=== PATIENT | male | born 1955 | race Caucasian/White ===

== ENCOUNTER → 2018-05-24 15:22 | Outpatient (CLI) | payer MEDICARE | END | disposition home or self-care (01) | LOC: D.RAD 15:22 | DX: R06.02 Shortness of breath (principal) ==

== ENCOUNTER 2018-06-22 09:34 | Day surgery (SDC) | payer MEDICARE ==
[~2018-06-22] VITALS: Ht 167.6 cm; Wt 61.2 kg
[2018-06-22 10:18] LABS: BASOPHILS 0.8 % (0-2); EOSINOPHILS 8.5 % (0-7); HEMATOCRIT 38.6 % (42.0-54.0); HEMOGLOBIN 12.3 g/dL (13.5-17.5); IMMATURE GRANULOCYTES 0.2 % (0-5); LYMPHOCYTES 15.2 % (15-50); MCHC 31.9 g/dL (31.0-37.0); MCV 87.7 fL (80.0-100.0); MEAN PLATELET VOLUME 8.6 fL (7.4-10.4); MONOCYTES 6.1 % (2-11); NEUTROPHILS 69.2 % (40-80); PLATELET COUNT 141 10x3/uL (130-400); RDW 15.6 % (11.5-14.5); WBC 8.6 10x3/uL (4.8-10.8)
[2018-06-22 10:22] LABS: INR 1.04 (0.85-1.17); PROTIME 13.1 SECONDS (11.6-15.0)
[2018-06-22 10:42] LABS: CALCIUM 8.8 mg/dL (8.5-10.1); CARBON DIOXIDE 24.9 mmol/L (21.0-32.0); CREATININE - SERUM 5.4 mg/dL (0.6-1.3); POTASSIUM - SERUM 4.9 mmol/L (3.5-5.1)
[2018-06-22] MEDS ORDERED: LASIX80 MG PO (11:41)
[2018-06-22] MEDS ORDERED: NORVASC5 MG (11:41)
[2018-06-22] MEDS ORDERED: LISINOPRIL2.5 MG (11:41)
[2018-06-22] MEDS ORDERED: LIPITOR40 MG PO (11:42)
[2018-06-22] MEDS ORDERED: CLOTRIMAZOLE-BETAMET (11:43)
[2018-06-22 11:54] VITALS: Ht 167.6 cm; Wt 61.2 kg
[2018-06-22] MEDS ORDERED: HYDROCODON-ACE1 EAC7 PO (14:56)
--- NOTE | 2018-06-24 11:50 | OP ---
PATIENT NAME: EULOGIO MULLER MEDICAL RECORD: [id number] :51 LOCATION:D[facility] ADMISSION DATE: SURGEON: GERSON AHUMADA MD DATE OF OPERATION: 06/22/2018 REFERRING PHYSICIAN: Marquis Soto MD PREOPERATIVE DIAGNOSES: End-stage renal disease. POSTOPERATIVE DIAGNOSIS: End-stage renal disease. OPERATION PERFORMED: Creation of a left wrist radiocephalic arterial venous fistula. SURGEON: Gerson Ahumada MD ANESTHESIA: Regional block and MAC per LOGISTICS SUPPORT. PREOPERATIVE NOTE: Ms. Muller is on dialysis and requires long-term access. She is brought to the operating room as an outpatient to create a fistula in the left upper extremity. Under regional block and additional sedation as needed, the patient was placed in the supine position, prepped and draped in the sterile manner. A Augusto drain was used as a proximal venous tourniquet and nitroglycerin paste was applied to the skin of the arm and forearm. The patient's superficial veins stood up very prominently and although I did do ultrasound, it was really not necessary, the cephalic vein at the wrist all the way up to the shoulder was a good caliber about 3-4 mm in diameter at the wrist and I elected to go ahead with the radiocephalic fistula as planned preop. A longitudinal incision was made through which the cephalic vein and the radial artery were exposed. Branches and tributaries controlled with electrocautery or tiny Hemoclips. The vein and artery were approximated side to side and occluded with when needed with Silastic loops. The vein was opened and flushed with heparinized saline and hydrostatically distended. The artery was then opened making a corresponding arteriotomy, which then also was flushed proximally and distally with heparinized saline. A eubv-xw-xite anastomosis was then performed with continuous running 7-0 Prolene and when completed and the occluding loops were released, excellent flow immediately developed. The vein distal to the anastomosis was closed with Hemoclips leaving an effective end of vein to side of artery fistula. Hemostasis was obtained with electrocautery. The wound was irrigated with Ancef/gentamicin solution and closed without the use of a drain with interrupted inverted 3-0 Vicryl. First continuous wave handheld Doppler exam was done, which demonstrated pulsatile continuous flow in the new fistula and preservation of flow in the distal radial artery as well as in the proximal. The skin was closed with running intracuticular 4-0 Monocryl and Dermabond glue. It was dressed with Maxorb Ag, Tegaderm, and Cavilon skin prep. The patient was awakened and taken back to the recovery room. PLAN: I plan for the patient to go home today and resume activities and her usual dialysis schedule tomorrow. She will continue her same home medications and I will ask her to come back to see me in my office for followup next week. She can leave the original operative dressing intact until then. OPERATIVE REPORT [id number] EULOGIO MULLER TRANSINT:[id number] Voice Confirmation ID: [id number] DOCUMENT ID: [id number] 06/23/2018 [facility] [phone] GERSON AHUMADA MD at 1150 CC: [facility] and MARQUIS SOTO MD [phone] DICTATION DATE: 06/22/182021 TENTER FRAME BACK TENDER: 06/23/18 0143 [facility] 06/22/18 [facility] [address] [place] [address]
== END 2018-06-22 17:30 | disposition home or self-care (01) ==
LOC: D.OPS 09:34
PROVIDERS: Surgery; ATTEND Internal Medicine Nephrology
DX: N18.6 End stage renal disease (principal); Z01.812 Encounter for preprocedural laboratory examination; Z99.2 Dependence on renal dialysis

== ENCOUNTER 2018-07-20 08:53 | Outpatient (CLI) | payer MEDICARE ==
[~2018-07-20] VITALS: Ht 167.6 cm; Wt 65.9 kg
--- NOTE | ~2018-07-20 | HEMODYNAMI ---
PATIENT:EULOGIO ANDERSEN MEDICAL RECORD: [id number] : 51 LOCATION:[facility] ADMISSION DATE: 07/20/18 Generatedon:07/20/201811:08 Patient name: EULOGIO ANDERSEN Patient #: [id number] SSN: DO B: 1955 Date of study: 07/20/2018 Page: Of Hemodynamic Procedure Report Patient Data Patient Demographics Procedure consent was obtained First Name: EULOGIO Gender: Male Last Name: NATHALY : 1955 Middle Initial: L Age: 63 year(s) Patient #: [id number] Race: Unknown Additional ID: [id number] Contact details [address]: [address] [place] [address] State: [place] City: [place] Zip code: [address] Past Medical History Allergies: No known allergies Admission Admission Data Admission Date: 07/20/2018 Admission Time: 8:53 Height (in.): 67 BSA: 1.74 (m2) Height (cm.): 170.18 BMI: 22.08 (kg/m2) Weight (lbs.): 141 Weight (kg.): 63.96 Lab Results Lab Result Date: 07/20/2018 Lab Result Time: 0:00 Biochemistry Name Units Result Min Max BUN mg/dl 36 --(----)-* 7 18 Creatinine mg/dl 5.4 --(----)-* 0.6 1.3 Procedure Procedure Types Cath Procedure Diagnostic Procedure C [facility] w/Coronaries Sedation Charges Moderate Sedation up to 30 minutes PCI Procedure Coronary Stent Coronary Stent Initial Peripheral Cath Diagnostic Procedure Station Mechanic Apprentice Peripheral Procedures Lsybx-Jdeexib-Dwt-Off SONOSCOPE OPERATOR/STENT Peripheral Peripheral vascular Intervention Angioplasty Angioplasty Iliac Initial Angioplasty Iliac Additional Stent Stent Iliac w/plasty Initial Stent w/plasty-Iliac Additional Procedure Description Procedure Date Procedure Date: 07/20/2018 Procedure Start Time: 10:25 Procedure End Time: 11:07 Procedure Staff Name Function Nathen Acosta MD Performing Physician Ilene Nieto RT Monitor Mario Roth RN Nurse Miryam Briscoe RT Scrub Procedure Data Cath Procedure Fluoroscopy Diagnostic fluoroscopy Total fluoroscopy Time: 9.8 time: 9.8 min min Diagnostic fluoroscopy Total fluoroscopy dose: dose: 1244 mGy 1244 mGy Contrast Material Contrast Material Type Amount (ml) Isovue 300 225 Entry Location Entry Primary Successful Side Size (Fr) Upsize 1 Upsize Entry Closu re Successful Closure Location (Fr) 2 (Fr) Remarks Devic e Remarks Femoral Right 5 Fr 6 Fr 6 Fr Exose al artery Mid-Length Short Femoral Left 6 Fr 6 Fr Short Exose al artery Mid-Length Estimated blood loss: 10 ml Diagnostic catheters Device Type Used For End Catheter Placement MULTIPACK Pigtail 5 Fr Procedure catheter MULTIPACK Pigtail 5 Fr Abdominal catheter aortogram with runoff MULTIPACK JL 4.0 5Fr Procedure catheter Procedure Complications No complications Procedure Medications Medication Administration Route Dosage 0.9% NaCl I.V. 10 ml/hr Oxygen etCO2 Nasal cannula 2 l/min Heparin Flush Bag added to field 2 bags (1000units/500ml NS) Lidocaine 2% added to field 20 Versed I.V. 1 mg Fentanyl I.V. 50 mcg Heparin Bolus I.V. 4000 units Versed I.V. 0.5 mg Fentanyl I.V. 25 mcg Hemodynamics Rest BSA: 1.74 (m2) O2 Consumption: Estimated: 195.3 (ml/min) O2 Consumption indexed: Estimated:112.24 (ml/min/m) Heart Rate: 58 (bpm) Pressure Samples Time Site Value (mmHg) Purpose Heart Use Rate(bpm) 10:27 LV 107/2,14 Snapshot 60 10:28 AO 120/51(78) Pullback 67 10:28 LV 127/6,15 Pullback 67 Gradients Valve Time Site 1 Site 2 Mean SEP/DFP Peak To Heart Use (mmHg) (sec/min) Peak Rate (mmHg) (bpm) Aortic 10:28 LV AO 29 21 7 67 127/6,15 120/51(78) Calculations Valve P-P Mean Valve Index Valve Source Name Gradient Area Flow (cm2) Aortic 7 29 7 29 Snapshots Pre Cath Intra NCS Post Cath Vital Signs Time Heart Resp SPO2 etCO2 NIBP (mmHg) Rhythm Pain Sedation Rate (ipm) (%) (mmHg) Status Level (bpm) 10:15:23 59 18 100 26.6 137/67(104) NSR 0 (11) 10(A) , No pain 10:19:37 63 15 98 25 129/65(95) NSR 0 (11) 10(A) , No pain 10:23:51 59 15 100 0 117/57(88) NSR 0 (11) 10(A) , No pain 10:28:58 57 19 99 22.8 129/56(103) NSR 0 (11) 10(A) , No pain 10:33:12 60 20 99 17.4 116/62(92) NSR 0 (11) 9(A) , No pain 10:37:20 57 18 96 31.8 129/60(105) NSR 0 (11) 9(A) , No pain 10:41:32 60 14 99 0 128/61(94) NSR 0 (11) 9(A) , No pain 10:45:46 61 14 95 0.7 124/54(88) NSR 0 (11) 9(A) , No pain 10:49:58 59 21 95 23.5 115/58(93) NSR 0 (11) 9(A) , No pain 10:55:11 57 17 96 31.8 126/57(97) NSR 0 (11) 9(A) , No pain 10:59:23 57 17 100 25 128/61(99) NSR 0 (11) 9(A) , No pain 11:03:33 57 38 100 28.8 130/64(101) NSR 0 (11) 9(A) , No pain 11:07:45 61 16 99 0 129/68(94) NSR 0 (11) 9(A) , No pain Medications Time Medication Route Dose Verified Delivered Reason Notes Effectiveness by by 10:14:44 0.9% NaCl I.V. 10 Mario Mario Per physician ml/hr Ira Roth RN RN 10:14:53 Oxygen etCO2 2 Mario Mario for low 02 sats Nasal l/min Ira Roth cannula RN RN 10:15:05 Heparin Flush added 2 Mario Mario used for Bag to bags Ira Roth procedure (1000units/500ml field RN RN NS) 10:15:15 Lidocaine 2% added 20ml Mario Mario for local to vial Ira Roth anesthetic field DUMONT RN 10:24:15 Versed I.V. 1 mg Mario Mario for sedation Ira Roth RN RN 10:24:23 Fentanyl I.V. 50 Mario Mario for sedation mcg Ira Roth RN RN 10:38:28 Heparin Bolus I.V. 4000 Mario Mario for units Lorromeo Roth anticoagulation RN RN 10:39:25 Versed I.V. 0.5 Mario Mario for sedation mg Ira Roth RN RN 10:39:32 Fentanyl I.V. 25 Mario Mario for sedation mcg Ira Roth RN deliverer outside Log Time Note 9:56:03 Time tracking: Regular hours (M-F 7:00 - 5:00) 9:56:07 Plan of Care:Hemodynamics will remain stable., Cardiac rhythm will remain stable., Comfort level will be maintained., Respiratory function will remain adequate., Patient/ family verbilizes understanding of procedure., Procedure tolerated without complication., Recovers from procedure without complications.. 9:56:11 Mario Roth RN sent for patient. Start room use. 10:04:59 Patient received from Pre/Post Procedure Room to CCL 2 Alert and oriented. Tansferred to table in Supine position. 10:05:00 Warm blankets applied, and marek hugger turned on for patient comfort. 10:05:01 Correct patient and procedure confirmed by team. 10:05:02 Signed procedure consent form obtained from patient. 10:05:04 ECG and BP/O2 sat monitors applied to patient. 10:05:27 H&P Date Dictated: 07/08/2018 Within 30 days and on chart., H&P Addendum completed by physician on day of procedure. (MUST COMPLETE FOR ALL OUTPATIENTS). 10:05:29 Pre-procedure instructions explained to patient. 10:05:30 Family in waiting room. 10:05:34 Patient NPO since Midnight. 10:05:46 Patient allergic to No known allergies 10:05:50 Is the patient allergic to Iodine/contrast media? No. 10:05:51 Was the patient premedicated? Yes 10:06:06 Is patient on blood thinner?Yes 10:06:10 ACC The patient was administered the following blood thiners within the last 24 hours: ACCPlavix 10:06:12 Patient diabetic? No. 10:06:16 Snore? Yes 10:06:17 Sleep apnea? No 10:06:27 Dentures? No ? 10:06:39 IV patent on arrival in right forearm with 0.9% NaCl at [facility]. 10:08:18 Lab Result : Creatinine 5.4 mg/dl 10::18 Lab Result : BUN 36 mg/dl 10:08:40 Patient Height : 67 inches 10:08:49 Patient Weight : 141 lbs 10:09:05 Lab results completed and on chart. 10:09:11 Bilateral groins area was prepped with chlora-prep and draped in sterile fashion 10::13 Sharps counted by scrub and verified by R.N. 10::34 Vital chart was started 10:14:44 0.9% NaCl 10 ml/hr I.V. was administered by Mario Roth RN; Per physician; 10:14:53 Oxygen 2 l/min etCO2 Nasal cannula was administered by Mario Roth RN; for low 02 sats; 10:15:05 Heparin Flush Bag (1000units/500ml NS) 2 bags added to field was administered by Mario Roth RN; used for procedure; 10:15:15 Lidocaine 2% 20ml vial added to field was administered by Mario Roth RN; for local anesthetic; 10:17:30 Baseline sample Acquired. 10::34 Rhythm: sinus rhythm 10:17:37 Full Disclosure recording started 10:17:57 Pre procedure: right dorsailis pedis pulse Doppler 10:18:02 Pre procedure: left dorsailis pedis pulse Doppler 10:19:51 Maximum allowable Isovue 300 dose 56ml. Physician notified. (300ml for normal creatinines. For patients with creatinine of 1.7 or higher multiply weight(kg) x 5 divided by creatinine.) 10:22:24 Physician arrived 10:22:25 --------ALL STOP TIME OUT------ 10:22:26 Final Timeout: patient, procedure, and site verified with staff and physician. All members of the team are in agreement. 10:22:31 Bilateral groins site verified by team. 10:23:59 Fire Safety Assessment: A--An alcohol-based skin anteseptic being used preoperatively., C--Open oxygen or nitrous oxide is being used., D--An ESU, laser, or fiber-optic light is being used. 10:24:03 Physical assessment completed. ASA score P 2 - A patient with mild systemic disease as per Nathen Acosta MD. 10:24:07 Sedation plan: IV Moderate Sedation Medication:Versed, Fentanyl 10:24:15 Versed 1 mg I.V. was administered by Mario Roth RN; for sedation; 10:24:23 Fentanyl 50 mcg I.V. was administered by Mario Roth RN; for sedation; 10:24:38 Use device set Femoral Dx 10:24:40 ACIST Syringe (07432) opened to sterile field. 10:24:40 Bag Decanter (2002S) opened to sterile field. 10:24:41 Medline Cath Pack ([id number]) opened to sterile field. 10:24:42 DIAGNOSTIC WIRE .035 260cm J wire (572231) opened to sterile field. 10:24:43 ACIST Hand Control (00856) opened to sterile field. 10:24:43 ACIST Manifold (48582) opened to sterile field. 10:24:45 DIAGNOSTIC Multipack 5Fr catheter set (QY8620) opened to sterile field. 10:24:48 SHEATH 5FR Wharton (OAK136) opened to sterile field. 10:24:52 Procedure started. 10:25:13 Local anesthetic to right femoral artery with Lidocaine 2% by Nathen Acosta MD.INITIAL ACCESS ONLY 10:25:23 A 5 Fr sheath was inserted into the Right Femoral artery 10:26:23 GLIDE WIRE ANGLE 260cm (HO3892) opened to sterile field. 10:26:29 glidewire wire advanced. 10:27:01 A MULTIPACK Pigtail 5 Fr catheter was advanced over the wire and used for Procedure. 10:27:06 LV angiography performed. 10:28:08 LV gram done using ROMERO 10:28:13 EF : 30 % 10:28:16 Catheter removed. 10:29:25 A MULTIPACK Pigtail 5 Fr catheter was advanced over the wire and used for Abdominal aortogram with runoff. 10:29:44 Abdominal Aortagram was performed. 10:29:46 Right leg runoff performed. 10:29:47 Left leg runoff performed. 10:30:46 Catheter removed. 10:30:56 A MULTIPACK JL 4.0 5Fr catheter was advanced over the wire and used for Procedure. 10:31:45 LCA angiography performed. 10:33:55 Catheter removed. 10:36:57 Proceeding to intervention. 10:37:16 SHEATH 6FR Brite Tip 35cm ([id number]) opened to sterile field. 10:37:29 Sheath upsized to a 6 Fr Mid-Length. 10:38:28 Heparin Bolus 4000 units I.V. was administered by Mario Roth RN; for anticoagulation; 10:39:25 Versed 0.5 mg I.V. was administered by Mario Roth RN; for sedation; 10:39:32 Fentanyl 25 mcg I.V. was administered by Mario Roth RN; for sedation; 10:40:22 Place stent Inflation Number: 1 A LETHA 7 x 18 x 135 stent ([id number]) was prepped and advanced across the Mid Common Iliac, Right. The stent was deployed at 13 LINCOLN for 0:10 (min:sec). 10:41:42 Inflation number: 2 The stent balloon was then re-inflated across the Mid Common Iliac, Right to 15 LINCOLN for 0:09 (min:sec). 10:43:53 6 Fr [id number] guide catheter was inserted over the wire 10:43:59 CHOICE PT Extra Support 182cm wire ([id number]) opened to sterile field. 10:44:05 INFLATOR Merit BasixCompak (KQ1629) opened to sterile field. 10:45:15 Wire advanced across lesion. 10:47:10 Place stent Inflation Number: 1 A INTEGRITY RX 2.25 x 12 stent ([id number]) was prepped and advanced across the Mid CX. The stent was deployed at 13 LINCOLN for 0:16 (min:sec). 10:48:34 Wire removed. 10:48:37 Stent catheter was removed intact over wire. 10:48:38 Guide catheter removed. 10:48:54 Local anesthetic to left femerol artery with Lidocaine 2% by Nathen Acosta MD.ADDITIONAL ACCESS 10:49:41 A 6 Fr Mid-Length sheath was inserted into the Left Femoral artery 10:52:23 choice pt ex support wire advanced. 10:53:04 Inflation number: 1 The stent balloon was then re-inflated across the Mid Common Iliac, Left to 9 LINCOLN for 0:10 (min:sec). 10:53:13 Balloon removed. 10:54:50 Place stent Inflation Number: 2 A LETHA 7 x 29 x 135 stent ([id number]) was prepped and advanced across the Mid Common Iliac, Left. The stent was deployed at 15 LINCOLN for 0:10 (min:sec). 10:58:06 Stent removed. 10:58:09 Stent catheter was removed intact over wire. 10:58:50 Sheath removed intact; hemostasis achieved with Exoseal to the Left Femoral artery. 10:58:50 Sheath upsized to a 6 Fr Short. 10:59:09 Sheath upsized to a 6 Fr Short. 10:59:09 Sheath removed intact; hemostasis achieved with Exoseal to the Right Femoral artery. 10:59:36 SHEATH 6FR Wharton (JHZ448) opened to sterile field. 10:59:38 CHOICE PT Extra Support 182cm wire ([id number]) opened to sterile field. 10:59:39 SHEATH 6FR Brite Tip 35cm ([id number]) opened to sterile field. 10:59:43 SHEATH 6FR Wharton (ICS706) opened to sterile field. 10:59:47 Tegaderm 4 x 4 (1626W) opened to sterile field. 10:59:52 EXOSEAL 6Fr (EX600) opened to sterile field. 10:59:53 EXOSEAL 6Fr (EX600) opened to sterile field. 10:59:58 Procedure ended.(Physican Out) 11:00:09 Fluoroscopy time 09.80 minutes. 11:00:14 Fluoroscopy dose: 1244 mGy 11:00:14 Flurop Dose total: 1244 11:01:50 Contrast amount:Isovue 300 225ml. 11:02:34 Sharps counted by scrub and verified by R.N. 11:02:38 Insertion/operative site no bleeding no hematoma. 11:02:42 Post-op/insertion site Right Femoral artery dressed using a 4 x 4 and Tegaderm. 11:02:46 Post-op/insertion site Left Femoral artery dressed using a 4 x 4 and Tegaderm. 11:02:52 Post right femoral artery:stable 11:02:56 Post left femerol artery:stable 11:02:58 Post Procedure Pulses reassessed and unchanged 11:03:02 Post-procedure physical assessment completed. ASA score P 2 - A patient with mild systemic disease as per Nathen Acosta MD. 11:03:10 Post procedure rhythm: unchanged. 11:03:14 Estimated blood loss: 10 ml 11:03:16 Post procedure instruction explained to patient.Patient verbalizes understanding. 11:04:47 Procedure type changed to Cath procedure, Diagnostic procedure, LHC, LHC w/Coronaries, Sedation Charges, Moderate Sedation up to 30 minutes, PCI procedure, Coronary Stent, Coronary Stent Initial, Peripheral Cath Diagnostic Procedure, Station Mechanic Apprentice Peripheral Procedures, Xwvux-Kdmbozp-Mlr-Off, SONOSCOPE OPERATOR/STENT Peripheral, Peripheral vascular Intervention, Angioplasty, Angioplasty Iliac Initial, Angioplasty Iliac Additional, Stent, Stent Iliac w/plasty Initial, Stent w/plasty-Iliac Additional 11:04:50 Procedure and supply charges have been captured, reviewed, submitted and are correct. 11:06:29 Procedure and supply charges have been captured, reviewed, submitted and are correct. 11:07:24 Procedure Complication : No complications 11:07:27 Vital chart was stopped 11:07:27 See physician's report for complete and final results. 11:07:31 Report given to Pre/Post Procedure Room. 11:07:35 Patient transfered to Pre/Post Procedure Room with Stretcher. 11:07:37 Procedure ended. 11:07:37 Full Disclosure recording stopped 11:07:41 End room use (Document Last) Intervention Summary Intervention Notes Time ActionType Lesion and Equipment Action# Pressure Duration Attributes Used 10:40:22 Place stent Mid Common LETHA 7 x 1 13 00:10 Iliac, 18 x 135 Right stent ([id number]) 10:41:42 Reinflate Mid Common LETHA 7 x 2 15 00:09 stent Iliac, 18 x 135 balloon Right stent ([id number]) 10:47:10 Place stent Mid CX INTEGRITY RX 1 13 00:16 2.25 x 12 stent ([id number]) 10:53:04 Reinflate Mid Common LETHA 7 x 1 9 00:10 stent Iliac, Left 18 x 135 balloon stent ([id number]) 10:54:50 Place stent Mid Common LETHA 7 x 2 15 00:10 Iliac, Left 29 x 135 stent ([id number]) Device Usage Item Name Manufacture Quantity Catalog Number Hospital Part Current Mini [facility] Lot# / Charge Number Stock Stock Serial# Code [facility] 1 [id number] 178341 734312 016592 20 Syringe Medical (38764) Systems Inc Bag Decanter Microtek 1 2001S 705809 33062 290558 5 () Medical Inc. Medline Cath Medline 1 [id number] 741204 19249 475930 5 Pack ([id number]) DIAGNOSTIC [facility] 1 289527 879088 850676 816920 30 WIRE .035 260cm J wire (521721) ACIST Hand Acist 1 04017 938734 752209 222396 5 Control Medical (20908) Systems Inc ACIST Acist 1 38840 077528 029874 456379 5 Manifold Medical (47282) Systems Inc DIAGNOSTIC Cardinal 1 [id number] 707467 27470 040185 30 Multipack Health 5Fr catheter set (RV3053) SHEATH 5FR Terumo 1 [id number] 622036 363554 093592 5 Wharton (TAQ378) GLIDE WIRE Terumo 1 JI4986 197220 854209 102664 5 ANGLE 260cm (ZR9812) MULTIPACK Cardinal 2 156286 5 Pigtail 5 Fr Health catheter MULTIPACK JL Cardinal 1 677348 5 4.0 5Fr Health catheter LETHA 7 x Cardinal 1 [id number] 055054 969198 041165 5 [id number] 18 x 135 Health stent ([id number]) CHOICE PT [place] 2 [id number] 164082 481230 926859 5 Extra Scientific Support 182cm wire ([id number]) SHEATH 6FR Cardinal 2 [id number] 302757 589921 357998 1 Impact Radiuse [facility] 35cm ([id number]) INFLATOR [facility] 1 [id number] 464023 240540 060225 15 [facility] Medical BasixCompak (BV5623) INTEGRITY RX Medtronic 1 [id number] 246052 231409 418164 5 [id number] 2.25 x 12 stent ([id number]) LETHA 7 x Cardinal 1 [id number] 402679 42464 122712 5 [id number] 29 x 135 Health stent ([id number]) SHEATH 6FR Terumo 2 [id number] 849005 218567 035835 40 Wharton (REE673) Tegaderm 4 x 3M 1 1626W 497944 272679 424864 5 4 (1626W) EXOSEAL 6Fr Cardinal 2 EX600 307375 195001 718381 10 (EX600) Health Signature Audit [place] Stage Time Signature Unsigned Intra-Procedure 07/20/2018 Ilene Nieto 11:08:14 AM RT(R) Signatures Monitor : Ilene Nieto Signature : RT Date : Time : [place] [place] [address]
[~2018-07-20 08:53] MED LIST: CLOTRIMAZOLE-BETAMET; HYDROCODON-ACE1 EAC7 PO; LASIX80 MG PO; LIPITOR40 MG PO; LISINOPRIL2.5 MG; NORVASC5 MG
[2018-07-20] MEDS ORDERED: PLAVIX75 MG PO (09:09)
[2018-07-20] MEDS ORDERED: DOXYCYCLINE HY100 M2 PO (09:10)
[2018-07-20] MEDS ORDERED: BREO ELLIPTA 11 EACH INH (09:10)
[2018-07-20] MEDS ORDERED: ASMANEX0.24 GM INH (09:11)
[2018-07-20] MEDS ORDERED: GABAPENTIN100 MG PO (09:11)
[2018-07-20] MEDS ORDERED: ISOSORBIDE MONO60 M1 PO (09:11)
[2018-07-20] MEDS ORDERED: NITROQUICK0.4 MG SL (09:12)
[2018-07-20] MEDS ORDERED: ULTRAM50 MG PO (09:12)
[2018-07-20 09:24] VITALS: BP 125/54; Ht 167.6 cm; Wt 65.9 kg
[2018-07-20] MEDS ORDERED: COREG6.25 MG PO (09:33)
[2018-07-20 09:44] LABS: BASOPHILS 0.6 % (0-2); EOSINOPHILS 9.6 % (0-7); HEMATOCRIT 40.9 % (42.0-54.0); HEMOGLOBIN 13.1 g/dL (13.5-17.5); IMMATURE GRANULOCYTES 0.1 % (0-5); LYMPHOCYTES 14.5 % (15-50); MCH 28.2 pg (26.0-34.0); MEAN PLATELET VOLUME 8.7 fL (7.4-10.4); MONOCYTES 7.3 % (2-11); NEUTROPHILS 67.9 % (40-80); RBC 4.65 10x6/uL (4.20-6.10); RDW 15.3 % (11.5-14.5); WBC 8.3 10x3/uL (4.8-10.8)
[2018-07-20 09:47] LABS: ANION GAP 14.7 mmol/L (8-16); CALCIUM 9.5 mg/dL (8.5-10.1); CARBON DIOXIDE 28.5 mmol/L (21.0-32.0); CREATININE - SERUM 5.4 mg/dL (0.6-1.3); POTASSIUM - SERUM 4.2 mmol/L (3.5-5.1)
[2018-07-20 10:06] LABS: PLATELET COUNT 189 10x3/uL (130-400)
--- NOTE | 2018-07-20 11:15 | NUR ---
RECIEVED TO ROOM VIA STRETCHER FROM [employer] AGENT WITH BILATERAL 6 FR EXOSEALS CDI HR 59 BP 121/53. CHEST PAIN IS DENIED.
--- NOTE | 2018-07-20 11:35 | NUR ---
RESTING QUIETLY WITH NO DISTRESS NOTED. BILATERAL GROINS ARE CDI
--- NOTE | 2018-07-20 11:43 | NUR ---
NO DISTRESS NOTED VSS AND CHEST PAIN IS DENIED
--- NOTE | 2018-07-20 12:09 | NUR ---
BILATERAL 6 FR EXOSEALS ARE CDI WITH PATIENT VERBALIZING NO PAIN OR NEEDS. TOLERATING ICE CHIPS WITH NAUSEA DENIED
--- NOTE | 2018-07-20 12:25 | NUR ---
SANDWICH AND JUICE TO BEDSIDE WITH FAMILY TO ASSIST. BILATERAL GROINS ARE CDI WITH CHEST PAIN DENIED
--- NOTE | 2018-07-20 12:36 | NUR ---
PATIENT CONTINUES TO REST WITH NO DISTRESS VSS AND BILATERAL GROINS ARE CDI
--- NOTE | 2018-07-20 13:05 | NUR ---
PT SLEEPING COMFORTABLY, R AND L GROIN DRESSINGS CDI NO BLEEDING OR HEMATOMA NOTED. VSS, CALL LIGHT IN REACH AND FAMILY AT BEDSIDE
--- NOTE | 2018-07-20 13:40 | NUR ---
PT STILL SLEEPING, R AND L GROIN DRESSING CDI NO BLEEDING OR HEMATOMA'S NOTED. O2 REMOVED AND HOB ELEVATED SLIGHTLY. STILL NOT WANTING SANDWICH AT THIS TIME. CALL VSS, CALL LIGHT IN REACH
--- NOTE | 2018-07-20 14:07 | NUR ---
PATIENT DENIED PAIN OR NEEDS CALL LIGHT IN REACH WITH FAMILY AT BEDSIDE
--- NOTE | 2018-07-20 14:36 | NUR ---
PIV REMOVED WITH DRESSING APPLIED. BILATERAL GROINS REMAIN CDI WITH NO BLEEDING NOTED. PATIENT DENIED PAIN OR NEEDS. VERBAL AND WRITTEN DISCHARGE GONE OVER WITH PATIENT AND FAMILY
--- NOTE | 2018-07-20 14:55 | NUR ---
PATIENT LEFT VIA WC TO PARKING FOR PRIVATE TRANSPORT HOME CHEST PAIN DENIED AND BILATERAL GROINS ARE CDI
--- NOTE | 2018-07-23 15:03 | OP ---
PATIENT NAME: EULOGIO ANDERSEN MEDICAL RECORD: [id number] :51 LOCATION:D[facility] ADMISSION DATE: SURGEON: DORIAN CARDONA MD DATE OF OPERATION: 07/20/2018 PROCEDURES: 1. ENVIRONMENTAL ANALYST stent, iliac, right. 2. ENVIRONMENTAL ANALYST stent, iliac, left. 3. Aortofemoral runoff. 4. Abdominal aortography. INDICATION: Claudication and peripheral vascular disease. PROCEDURE PERFORMED: After informed consent was obtained and after a detailed description of the risks, benefits as well as alternative therapies, the patient elected to proceed with angiogram and angioplasty. Both femoral areas were prepped and draped in normal sterile fashion. Both femoral artery was cannulated via modified Seldinger technique with placement of 6-Stateless sheath. FINDINGS: Abdominal aortography was performed. The catheter was pulled down for aortofemoral runoff. Abdominal aortography reveals no significant abdominal aortic disease, moderate irregularities; however. RIGHT LEG: A. Iliac: The common iliac has 80% and 90% stenosis in the proximal aspect, otherwise the iliacs have zpqw-ty-[id number] irregularities, heavy calcification. B. Femoral system: The common and deep femoral are widely patent. Superficial femoral was totally occluded. This reconstitutes distally via collaterals of the deep system. There is a lumen suitable for grafting. The popliteal and infrapopliteal vessels are patent, diffusely diseased, but there is 3-vessel runoff to the foot. LEFT LEG: A. Iliac: The common iliac is 99% stenosed, otherwise the iliacs have heavy calcification with no significant disease. B. Femoral system: The common and deep femoral are widely patent. Superficial femoral has a total occlusion throughout the [id number]-kd-bki vessel. This reconstitutes via collaterals off the deep femoral system, does have a lumen that is suitable for grafting. Popliteal and infrapopliteal vessels are diffusely diseased, but there is 3-vessel runoff to the foot. ENVIRONMENTAL ANALYST STENT OF BOTH ILIACS: The right iliac was addressed with a 7 x 18 Cordis Flor the left iliac with 7 x 29 Cordis Flor. Result was 0% residual on both iliacs. OVERALL IMPRESSION: Successful percutaneous transluminal angioplasty stent of both iliacs going from 80% to 95% initial stenosis to 0% residual. Evaluate for femoral popliteal bypass grafting for the superficial femoral artery disease. TRANSINT:[id number] Voice Confirmation ID: [id number] DOCUMENT ID: [id number] OPERATIVE REPORT [id number] EULOGIO ANDERSEN JEFFREY MD at 1503 CC: [id number] DICTATION DATE: 07/20/18 1104 OPERATIONS CONSULTANT: 07/20/18 1218 DEP CLI 07/20/18 [place] [id number] [place] [id number]
--- NOTE | 2018-07-23 15:03 | OP ---
PATIENT NAME: EULOGIO ANDERSEN MEDICAL RECORD: [id number] :51 LOCATION:[facility] ADMISSION DATE: SURGEON: DORIAN CARDONA MD DATE OF OPERATION: 07/20/2018 DATE OF SERVICE: 07/20/2018 PROCEDURES: 1. PTCA stent left circumflex. 2. Left heart catheterization. 3. Selective coronary angiography. 4. Left ventriculogram. INDICATION: Angina and coronary artery disease. PROCEDURE IN DETAIL: After informed consent was obtained and after a detailed description of the risks, benefits as well as alternative therapies, the patient elected to proceed with angiogram and angioplasty. The right femoral area was prepped and draped in normal sterile fashion. Right femoral artery was cannulated via modified Seldinger technique with placement of 6-English sheath. All catheters exchanged through this sheath. FINDINGS: Left ventriculogram was performed in standard 30-degree ROMERO view reveals global hypokinesis throughout all segments. Overall ejection fraction at 25% to 30%. SELECTIVE CORONARY ANGIOGRAPHY: 1. Left main has no significant angiographic disease. 2. Left anterior descending has a previously placed stent that is widely patent. No significant disease elsewise of the LAD or its branches. 3. Left circumflex has a 95% stenosis of the first obtuse marginal, otherwise the circumflex is large, codominant with no significant disease elsewise. 4. Right coronary is totally occluded, fills via well-developed [id number]-zv-myedp collateral. PTCA STENT OF THE LEFT CIRCUMFLEX FIRST OBTUSE MARGINAL: The stent used was a 2.25 x 12-mm Integrity. Result was 0% residual stenosis. OVERALL IMPRESSION: Successful percutaneous transluminal coronary angioplasty stent of the left circumflex first obtuse marginal going from 95% initial stenosis to 0% residual. TRANSINT:[id number] Voice Confirmation ID: [id number] DOCUMENT ID: [id number] DORIAN CARDONA MD at 1503 CC: [id number] DICTATION DATE: 07/20/18 1104 PULMONARY FELLOW: 07/20/18 1216 DEP CLI 07/20/18 [place] [id number] [place] [id number]
== END 2018-07-20 14:57 | disposition home or self-care (01) ==
LOC: D.CATH 08:53
PROVIDERS: ATTEND Internal Medicine Interventional Cardiology
DX: I25.119 Atherosclerotic heart disease of native coronary artery with unspecified angina pectoris (principal); Z01.812 Encounter for preprocedural laboratory examination; I70.213 Atherosclerosis of native arteries of extremities with intermittent claudication, bilateral legs

== ENCOUNTER → 2019-12-02 13:31 | Outpatient (CLI) | payer MEDICARE ==
[2018-07-20 09:24] VITALS: BMI 23.4
[~2019-12-02 13:31] MED LIST changes: +ASMANEX0.24 GM INH; +BREO ELLIPTA 11 EACH INH; +COREG6.25 MG PO; +DOXYCYCLINE HY100 M2 PO; +GABAPENTIN100 MG PO; +ISOSORBIDE MONO60 M1 PO; +NITROQUICK0.4 MG SL; +PLAVIX75 MG PO; +ULTRAM50 MG PO
== END | disposition home or self-care (01) ==
LOC: D.RAD 13:31
PROVIDERS: ATTEND Internal Medicine Nephrology
DX: R06.02 Shortness of breath (principal)